=== PATIENT | female | born 1945 | race Two or more races ===

== ENCOUNTER 2023-01-05 16:18 | Emergency (ER) | payer OTHER ==
[~2023-01-05] VITALS: Ht 160 cm; Wt 68.0 kg
[2023-01-05] MEDS ORDERED: METFORMIN HCL1000 M2 PO (17:16)
[2023-01-05 18:12] LABS: HEMOGLOBIN 11.7 g/dL (12.0-15.00); MEAN CELL VOLUME 90.9 fL (80.00-100.00); MEAN CORPUSCULAR HEMOGLOBIN 30.4 pg (27.00-32.0); MEAN CORPUSCULAR HGB CONC 33.4 g/dl (32.0-36.0); PLATELET COUNT 287 K/uL (150-450); RED BLOOD COUNT 3.85 M/uL (4.00-6.00)
[2023-01-05 18:47] LABS: CALCIUM 9.7 mg/dL (8.5-10.1); CREATININE SERUM 0.97 mg/dL (0.55-1.02); GFR 55.4; POTASSIUM 5.4 mEq/L (3.5-5.1)
[2023-01-05 19:31] LABS: URINE APPEARANCE Cloudy; URINE BILIRRUBIN Negative (NEGATIVE); URINE BLOOD Negative; URINE COLOR Yellow; URINE LEUKOCYTE Small; URINE NITRATE Positive; URINE PROTEIN 30 (NEGATIVE); URINE UROBILINOGEN 0.2 E.U./dl
[2023-01-05 19:32] LABS: URINE EPITHELIAL CELLS 27.5 uL (0.0-38.8); URINE RBC 2.8 uL (0.0-20.8)
[2023-01-05 19:49] LABS: URINE GLUCOSE >=1000 MG/DL (NEGATIVE)
[2023-01-05 19:50] LABS: URINE BACTERIA > 9821.2 uL (0.0-1933)
[2023-01-05] MEDS ORDERED: LEVOFLOXACIN500 MG PO (20:11)
== END 2023-01-05 20:46 | disposition home or self-care (01) ==
LOC: ER 16:18
PROVIDERS: General Practice
DX: N39.0 Urinary tract infection, site not specified (principal); E11.65 Type 2 diabetes mellitus with hyperglycemia; Z79.84 Long term (current) use of oral hypoglycemic drugs; R30.0 Dysuria
CPT/HCPCS: 36415; 96365; 96366; 99284; J1815; J7042